=== PATIENT | female | born 1980 | race Caucasian/White ===

== ENCOUNTER 2021-12-11 14:04 | Outpatient (CLI) | payer OTHER, SELFPAY ==
--- NOTE | 2021-12-11 14:30 | US_ITS ---
WS: [id number] TRANSABDOMINAL PELVIC ULTRASOUND HISTORY: PELVIC PAIN COMPARISON: None available. Uterus: 8.9 cm x 6.1 cm x 5.9 cm. Normal size and echogenicity. No fibroids are identified. Endometrium: 0.7 cm. Normal homogeneity and size. Limited. Right ovary: 3.0 cm x 3.2 cm x 2.2 cm; no solid or cystic mass. No color Doppler submitted. Left ovary: 2.9 cm x 2.4 cm x 2.2 cm; no solid or cystic mass. No color Doppler submitted. No free fluid in the cul-de-sac. US/US pelvic limited [id number] IMPRESSION: 1. Quality of this examination is limited as only transabdominal imaging is pe rformed through a partially distended bladder. Would be difficult to exclude fi broids or endometrial abnormality or adnexal abnormality. 2. No abnormality identified. If pain persists consider follow-up transvaginal imaging.
== END 2021-12-11 14:05 | disposition home or self-care (01) ==
PROVIDERS: Family Provider Nurse Practitioner; PCP Nurse Practitioner; Visit Provider Nurse Practitioner Family
DX: R10.30 Lower abdominal pain, unspecified (principal)
CPT/HCPCS: 76857